=== PATIENT | male | born 1950 | race Caucasian/White ===

== ENCOUNTER 2019-05-29 07:37 | Inpatient (IN) | payer MEDICARE ==
[~2019-05-29] VITALS: Ht 162.6 cm; Wt 65.0 kg
[2019-05-29] MEDS ORDERED: CHL25 PO (07:44)
[2019-05-29] MEDS ORDERED: VALS160T2 PO (07:44)
[2019-05-29] MEDS ORDERED: AMLO10TA7 PO (07:44)
[2019-05-29] MEDS ORDERED: ATOR20TA86 PO (07:44)
[2019-05-29] MEDS ORDERED: HYDR10TA31 PO (07:44)
[2019-05-29 08:26] LABS: ANION GAP 9 mmol/L (8-16); CALCIUM, TOTAL 9.2 mg/dL (8.8-10.5); CARBON DIOXIDE 31 mmol/L (22-29); CHLORIDE 96 mmol/L (98-107); CREATININE 0.95 mg/dL (0.60-1.30); GLOMERULAR FILTR. RATE CALC > 60 mL/min (>60); GLUCOSE,RANDOM 116 mg/dL (70-110); SODIUM SERUM 136 mmol/L (136-145); UREA NITROGEN, BLOOD 18 mg/dL (7-18)
[2019-05-29 08:28] LABS: POTASSIUM 2.6 mmol/L (3.5-5.1)
[2019-05-29 08:39] LABS: BASOPHILS % (AUTO) 0.4 % (0.0-2.0); EOSINOPHILS % (AUTO) 1.4 % (1.0-6.0); HEMATOCRIT 39.7 % (41-53); HEMOGLOBIN 13.7 g/dL (13.5-17.5); LYMPHOCYTES # (AUTO) 2.5 K/uL (1.0-4.8); LYMPHOCYTES % (AUTO) 33.4 % (22.0-44.0); MEAN CORPUSCULAR HEMOGLOBIN 30.1 pg (26.0-34.0); MEAN CORPUSCULAR HGB CONC 34.4 G/dL (31.0-37.0); MEAN CORPUSCULAR VOLUME 88 fL (80-100); MONOCYTES # (AUTO) 0.7 K/uL (0.1-1.0); MONOCYTES % (AUTO) 9.2 % (2.0-9.0); NEUTROPHILS # (AUTO) 4.2 K/uL (1.8-7.7); NEUTROPHILS % (AUTO) 55.6 % (40.0-70.0); PLATELET COUNT (AUTO) 230 K/uL (150-450); RED BLOOD CELL COUNT(AUTO) 4.54 MIL/uL (4.50-5.90); RED CELL DISTRIBUTION WIDTH 13.7 % (11.5-14.5)
[2019-05-29] MEDS ORDERED: ONDANSETRON HCL 4 MG/2 ML VIAL IVP PRN (08:45)
[2019-05-29] MEDS ORDERED: ACETAMINOPHEN 325 MG TABLET PO PRN (08:45)
[2019-05-29] MEDS: POTASSIUM CHL 10 MEQ/WATER 50 ML IV SCH ×4 (09:01→13:27)
[2019-05-29] MEDS ORDERED: POTASSIUM CHLORIDE 20 MEQ ER TABLET PO PRN ×3 (09:45→10:00)
[2019-05-29] MEDS ORDERED: POTASSIUM CHL 10 MEQ/WATER 50 ML IV PRN ×2 (09:45→10:00)
[2019-05-29] MEDS ORDERED: POTASSIUM CHLORIDE 20 MEQ ER TABLET PO ONE ×2 (09:45→21:00)
[2019-05-29] MEDS ORDERED: MAGNESIUM SULFATE 2 GM/WATER 50 ML IV PRN (10:00)
[2019-05-29] MEDS ORDERED: MAGNESIUM OXIDE 400 MG TABLET PO PRN (10:00)
[2019-05-29] MEDS ORDERED: MAGNESIUM SULFATE 4 GM/WATER 100 ML IV PRN (10:00)
[2019-05-29 10:15] VITALS: BP 120/75
[2019-05-29 10:21] LABS: ALBUMIN 3.9 g/dL (3.4-5.0)
[2019-05-29] MEDS ORDERED: SODIUM CHLORIDE 0.9% 500 ML IV ONE (10:25)
[2019-05-29 12:10] VITALS: BP 124/72
[2019-05-29 16:35] VITALS: BP 123/73
[2019-05-29] MEDS: POTASSIUM CHLORIDE 20 MEQ ER TABLET PO PRN (16:43)
[2019-05-29 20:20] VITALS: BP 100/67
[2019-05-29] MEDS ORDERED: ATORVASTATIN CALCIUM 20 MG TABLET PO SCH (21:00)
[2019-05-30 00:32] VITALS: BP 112/72
[2019-05-30 02:38] LABS: POTASSIUM 3.6 mmol/L (3.5-5.1)
[2019-05-30 05:02] VITALS: BP 134/75
[2019-05-30 07:56] VITALS: BP 130/73
[2019-05-30 11:24] VITALS: BP 132/75
[2019-05-30] MEDS: POTASSIUM CHLORIDE 20 MEQ ER TABLET PO PRN (14:39)
[2019-05-30] MEDS: POTASSIUM CHL 10 MEQ/WATER 50 ML IV SCH ×2 (14:39→15:47)
[2019-05-30 15:56] VITALS: BP 137/66
== END 2019-05-30 18:40 | disposition home or self-care (01) | DRG 641 ==
LOC: EMS 07:39 → 5S 09:07
PROVIDERS: ADMIT Internal Medicine; ATTEND Internal Medicine
DX: E87.6 Hypokalemia (principal); E78.00 Pure hypercholesterolemia, unspecified; I10 Essential (primary) hypertension; E11.9 Type 2 diabetes mellitus without complications; E78.5 Hyperlipidemia, unspecified
CPT/HCPCS: 83735; 84132; 93005; G0378; J3480; J7040